=== PATIENT | female | born 2005 | race Caucasian/White ===

== ENCOUNTER 2023-01-21 21:47 | Day surgery (SDC) | payer BC, OTHER ==
[~2023-01-21] VITALS: Ht 162.5 cm; Wt 68.0 kg
--- NOTE | 2023-01-21 21:52 | ED Abdominal Pain ---
General Stated Complaint: SEVERE ADOMINAL PAIN History of Present Illness Date Seen by Provider: Jan 21, 2023 Time Seen by Provider: 21:52 Initial Comments 17-year-old female with no significant PMH, is here with complaints of right lower quadrant and periumbilical pain which began yesterday and has been worsening today. Pain has increased intensity to 7/10. Patient had a [employer] wrap for lunch and was able to tolerate it. Denies fever and chills, vomiting, diarrhea, constipation, chest pain. In the ER pt has intermittent bouts of nausea. Allergies and Home Medications Allergies Coded Allergies: No Known Drug Allergies (Unverified , 01/21/23) Patient Home Medication List Home Medication List Reviewed: Yes Review of Systems Review of Systems Constitutional: no symptoms reported EENTM: No Symptoms Reported Respiratory: No Symptoms Reported Cardiovascular: No Symptoms Reported Gastrointestinal: Abdominal Pain, Nausea Genitourinary: No Symptoms Reported Skin: no symptoms reported Physical Exam Vital Signs Vital Signs - First Documented 01/21/23 21:52 Temp 36.8 Pulse 84 Resp 18 B/P (MAP) 127/105 (112) Pulse Ox 100 O2 Delivery Room Air Capillary Refill : Height/Weight/BMI Height: '" Weight: lbs. oz. kg; BMI Method: General Appearance: WD/WN, moderate distress HEENT: PERRL/EOMI, normal ENT inspection Neck: full range of motion Respiratory: lungs clear, normal breath sounds Cardiovascular: tachycardia Gastrointestinal: normal bowel sounds, soft, no organomegaly, tenderness (Right lower quadrant and periumbilical area) Extremities: normal range of motion Back: normal inspection, no CVA tenderness Neurologic/Psychiatric: alert, normal mood/affect, oriented x 3 Skin: normal color Focused Exam Lactate Level 01/21/23 21:58: Lactic Acid Level 0.83 Lactic Acid Level Laboratory Tests Test 01/21/23 21:58 Lactic Acid Level 0.83 MMOL/L (0.50-2.00) Progress/Results/Core Measures Results/Orders Lab Results Laboratory Tests Test 01/21/23 21:53 01/21/23 21:58 01/21/23 22:04 Range/Units Urine Color YELLOW Urine Clarity CLEAR Urine pH 6.0 5-9 Urine Specific [place] >=1.030 1.016-1.022 Urine Protein NEGATIVE NEGATIVE Urine Glucose (UA) NEGATIVE NEGATIVE Urine Ketones NEGATIVE NEGATIVE Urine Nitrite NEGATIVE NEGATIVE Urine Bilirubin NEGATIVE NEGATIVE Urine Urobilinogen 0.2 < = 1.0 MG/DL Urine Leukocyte Esterase NEGATIVE NEGATIVE Urine RBC (Auto) TRACE-I H NEGATIVE Urine RBC 5-10 H /HPF Urine WBC 10-25 H /HPF Urine Squamous Epithelial Cells 10-25 H /HPF Urine Crystals NONE /LPF Urine Bacteria MODERATE H /HPF Urine Casts NONE /LPF Urine Mucus LARGE H /LPF Urine Culture Indicated YES Urine Test NEGATIVE NEGATIVE Urine Opiates Screen POSITIVE H NEGATIVE Urine Oxycodone Screen NEGATIVE NEGATIVE Urine Methadone Screen NEGATIVE NEGATIVE Urine Propoxyphene Screen NEGATIVE NEGATIVE Urine Barbiturates Screen NEGATIVE NEGATIVE Ur Tricyclic Antidepressants Screen NEGATIVE NEGATIVE Urine Phencyclidine Screen NEGATIVE NEGATIVE Urine Amphetamines Screen NEGATIVE NEGATIVE Urine Methamphetamines Screen NEGATIVE NEGATIVE Urine Benzodiazepines Screen NEGATIVE NEGATIVE Urine Cocaine Screen NEGATIVE NEGATIVE Urine Cannabinoids Screen NEGATIVE NEGATIVE White Blood Count 19.5 H 4.3-11.0 10^3/uL Red Blood Count 4.77 3.80-5.11 10^6/uL Hemoglobin 14.4 11.5-16.0 g/dL Hematocrit 43 35-52 % Mean Corpuscular Volume 89 80-99 fL Mean Corpuscular Hemoglobin 30 25-34 pg Mean Corpuscular Hemoglobin Concent 34 32-36 g/dL Red Cell Distribution Width 11.9 10.0-14.5 % Platelet Count 293 130-400 10^3/uL Mean Platelet Volume 9.9 9.0-12.2 fL Immature Granulocyte % (Auto) 0 % Neutrophils (%) (Auto) 58 42-75 % Lymphocytes (%) (Auto) 27 12-44 % Monocytes (%) (Auto) 8 0-12 % Eosinophils (%) (Auto) 6 0-10 % Basophils (%) (Auto) 1 0-10 % Neutrophils # (Auto) 11.2 H 1.8-7.8 10^3/uL Lymphocytes # (Auto) 5.3 H 1.0-4.0 10^3/uL Monocytes # (Auto) 1.6 H 0.0-1.0 10^3/uL Eosinophils # (Auto) 1.2 H 0.0-0.3 10^3/uL Basophils # (Auto) 0.1 0.0-0.1 10^3/uL Immature Granulocyte # (Auto) 0.1 0.0-0.1 10^3/uL Neutrophils % (Manual) 63 % Lymphocytes % (Manual) 32 % Monocytes % (Manual) 2 % Eosinophils % (Manual) 3 % Sodium Level 139 135-145 MMOL/L Potassium Level 3.5 L 3.6-5.0 MMOL/L Chloride Level 100 98-107 MMOL/L Carbon Dioxide Level 26 21-32 MMOL/L Anion Gap 13 5-14 MMOL/L Blood Urea Nitrogen 11 7-18 MG/DL Creatinine 0.78 0.60-1.30 MG/DL Estimat Glomerular Filtration Rate 112 BUN/Creatinine Ratio 14 Glucose Level 103 70-105 MG/DL Lactic Acid Level 0.83 0.50-2.00 MMOL/L Calcium Level 10.2 H 8.5-10.1 MG/DL Corrected Calcium 8.5-10.1 MG/DL Magnesium Level 2.2 1.6-2.4 MG/DL Total Bilirubin 0.3 0.1-1.0 MG/DL Aspartate Amino Transf (AST/SGOT) 17 5-34 U/L Alanine Aminotransferase (ALT/SGPT) 11 0-55 U/L Alkaline Phosphatase 71 40-136 U/L Total Protein 8.3 H 6.4-8.2 GM/DL Albumin 5.3 H 3.2-4.5 GM/DL Lipase 36 8-78 U/L Serum Alcohol < 10 <10 MG/DL Influenza Type A (RT-PCR) Not Detected Not Detecte Influenza Type B (RT-PCR) Not Detected Not Detecte SARS-CoV-2 RNA (RT-PCR) Not Detected Not Detecte My Orders Orders - MICK OLEA MD Alcohol (01/21/23 21:52) Cbc And Automated Diff (01/21/23 21:52) Comprehensive Metabolic Panel (01/21/23 21:52) Drug Screen Stat (Urine) (01/21/23 21:52) Hcg,Qualitative Urine (01/21/23 21:52) Lactic Acid Analyzer (01/21/23 21:52) Lipase (01/21/23 21:52) Magnesium (01/21/23 21:52) Ua Culture If Indicated (01/21/23 21:52) Influenza A And B By Pcr (01/21/23 21:52) Covid 19 Inhouse Test (01/21/23 21:52) Ct Abdomen/Pelvis W (01/21/23 21:59) Ketorolac Injection (Ketorolac Injection (01/21/23 22:00) Blood Culture (01/21/23 22:00) Ondansetron Injection (Ondansetron Inj (01/21/23 22:15) Iohexol Injection (Omnipaque 350 Mg/Ml 1 (01/21/23 22:15) Received Contrast (Hold Metformin- Contr (01/21/23 22:15) Ns (Ivpb) 100 Ml (Sodium Chloride 0.9% 1 (01/21/23 22:15) Ed Iv/Invasive Line Start (01/21/23 22:05) Ns Iv 1000 Ml (Ns Iv 1000 Ml) (01/21/23 22:05) Ondansetron Injection (Ondansetron Inj (01/21/23 22:05) Urine Bedside (01/21/23 22:23) Manual Differential (01/21/23 21:58) Urine Culture (01/21/23 21:53) Piperacillin/Tazobactam (Piperacillin/Ta (01/21/23 23:00) Hydromorphone Injection (Hydromorphone (01/21/23 23:00) Medications Given in ED Current Medications Medications Dose Ordered Sig/Danette Route Start Time Stop Time Status Last Admin Dose Admin Iohexol 100 ml ONCE ONCE IV 01/21/23 22:15 01/21/23 22:16 DC 01/21/23 22:20 80 ML Ketorolac Tromethamine 15 mg ONCE ONCE IVP 01/21/23 22:00 01/21/23 22:01 DC 01/21/23 22:04 15 MG Ondansetron HCl 4 mg ONCE ONCE IVP 01/21/23 22:15 01/21/23 22:16 DC 01/21/23 22:07 4 MG Sodium Chloride 100 ml ONCE ONCE IV 01/21/23 22:15 01/21/23 22:16 DC 01/21/23 22:20 100 ML Vital Signs/I&O 01/21/23 21:52 Temp 36.8 Pulse 84 Resp 18 B/P (MAP) 127/105 (112) Pulse Ox 100 O2 Delivery Room Air Progress Progress Note : Progress Note 1. ACUTE APPENDICITIS: - CT ABD: acute appendicitis - CBC: WBC is 19.5 with a left shift - CMP: unremarkable - Lipase: negative - UA/ UDS:positive for opiates - Blood cultures sent - NS IVF 250/hr - Toradol iv / Zofran 4mg iv STAT - Zosyn iv STAT/Dilaudid 0.5mg iv - Discussed with Dr. Diaz , surgeon, and accepted to [facility]. Pt to go by private vehicle since [facility] will not transport pts after midnight. Diagnostic Imaging Diagonstic Imaging: CT Plain Films/CT/US/NM/MRI: abdomen Departure Impression Primary Impression: Acute appendicitis Disposition: 30 STILL A PATIENT Condition: Stable Admissions Decision to Admit Reason: Admit from ER (General) Decision to Admit/Date: Jan 21, 2023 Time/Decision to Admit Time: 22:40 Departure-Patient Inst. Referrals: NO,LOCAL PHYSICIAN (PCP/Family) Primary Care Physician MICK OLEA MD Jan 21, 2023 21:52
[2023-01-21] MEDS ORDERED: KETOROLAC INJ 15 MG/ML VIAL IVP ONE (22:00)
[2023-01-21] MEDS ORDERED: NS IV 1000 ML 1,000 ML IV STA (22:05)
[2023-01-21] MEDS ORDERED: ONDANSETRON INJECTION 4 MG/2 ML (SDV) ONE (22:05)
[2023-01-21] MEDS ORDERED: NS 100 ML (IVPB) BAG IV ONE (22:15)
[2023-01-21] MEDS ORDERED: ONDANSETRON INJECTION 4 MG/2 ML (SDV) IVP ONE (22:15)
[2023-01-21] MEDS ORDERED: IOHEXOL 350 MG/ML 100 ML (OMNIPAQUE 350) VIAL IV ONE (22:15)
[2023-01-21] MEDS ORDERED: HOLD METFORMIN - RECEIVED CONTRAST 20 ML VIAL IV SCH (22:15)
[2023-01-21 22:18] LABS: BASOPHILS # (AUTO) 0.1 10^3/uL (0.0-0.1); BASOPHILS % (AUTO) 1 % (0-10); EOSINOPHILS # (AUTO) 1.2 10^3/uL (0.0-0.3); EOSINOPHILS % (AUTO) 6 % (0-10); HEMATOCRIT 43 % (35-52); HEMOGLOBIN 14.4 g/dL (11.5-16.0); LYMPHOCYTES # (AUTO) 5.3 10^3/uL (1.0-4.0); LYMPHOCYTES % (AUTO) 27 % (12-44); MEAN CORPUSCULAR HEMOGLOBIN 30 pg (25-34); MEAN CORPUSCULAR HGB CONC 34 g/dL (32-36); MEAN CORPUSCULAR VOLUME 89 fL (80-99); MEAN PLATELET VOLUME 9.9 fL (9.0-12.2); MONOCYTES # (AUTO) 1.6 10^3/uL (0.0-1.0); MONOCYTES % (AUTO) 8 % (0-12); NEUTROPHILS # (AUTO) 11.2 10^3/uL (1.8-7.8); NEUTROPHILS % (AUTO) 58 % (42-75); PLATELET COUNT 293 10^3/uL (130-400); WHITE BLOOD COUNT 19.5 10^3/uL (4.3-11.0)
[2023-01-21 22:19] LABS: BILIRUBIN,URINE NEGATIVE (NEGATIVE); CLARITY,URINE CLEAR; COLOR,URINE YELLOW; GLUCOSE, URINE (UA) NEGATIVE (NEGATIVE); KETONES,URINE NEGATIVE (NEGATIVE); LEUKOCYTE ESTERASE ,URINE NEGATIVE (NEGATIVE); NITRITE,URINE NEGATIVE (NEGATIVE); PROTEIN,URINE NEGATIVE (NEGATIVE)
[2023-01-21 22:26] LABS: HCG,QUALITATIVE URINE NEGATIVE (NEGATIVE)
[2023-01-21 22:27] LABS: BACTERIA,URINE MODERATE /HPF
[2023-01-21 22:31] LABS: AMPHETAMINE SCREEN, URINE NEGATIVE (NEGATIVE); BARBITURATE SCREEN URINE NEGATIVE (NEGATIVE); CANNABINOID SCREEN, URINE NEGATIVE (NEGATIVE); COCAINE SCREEN URINE NEGATIVE (NEGATIVE); METHADONE STAT NEGATIVE (NEGATIVE); OPIATE SCREEN URINE POSITIVE (NEGATIVE); OXYCODONE STAT NEGATIVE (NEGATIVE); PROPOXYPHENE STAT NEGATIVE (NEGATIVE); TRICYCLIC ANTIDEPRESSANTS SCRE NEGATIVE (NEGATIVE)
[2023-01-21 22:34] LABS: BILIRUBIN,TOTAL 0.3 MG/DL (0.1-1.0); CALCIUM 10.2 MG/DL (8.5-10.1); CHLORIDE 100 MMOL/L (98-107); MAGNESIUM 2.2 MG/DL (1.6-2.4); POTASSIUM 3.5 MMOL/L (3.6-5.0); SODIUM 139 MMOL/L (135-145)
[2023-01-21 22:36] LABS: CARBON DIOXIDE 26 MMOL/L (21-32); LIPASE 36 U/L (8-78)
--- NOTE | 2023-01-21 22:38 | Diagnostic Imaging Report ---
PROCEDURE: CT abdomen and pelvis with contrast. TECHNIQUE: Multiple contiguous axial images were obtained through the abdomen and pelvis after administration of intravenous contrast. Auto Exposure Controls were utilized during the CT exam to meet ALARA standards for radiation dose reduction. All CT scans use one or more of the following dose optimizing techniques: automated exposure control, MA and/or KvP adjustment based on patient size and exam type or iterative reconstruction. INDICATION: Right lower quadrant pain The appendix appears distended with periappendiceal induration of the fat. Lung bases are clear. Liver appears normal. Gallbladder is normal. Spleen is not enlarged. Pancreas is normal. Kidneys and adrenals appear normal. Uterus and adnexa are unremarkable. There is no intraperitoneal free air or free fluid. IMPRESSION: Acute appendicitis Dictated by: Dictated on workstation # [id number]
[2023-01-21 22:40] LABS: ALANINE AMINOTRANSFERASE 11 U/L (0-55); ALKALINE PHOSPHATASE 71 U/L (40-136); BUN/CREATININE RATIO 14; CREATININE SERUM 0.78 MG/DL (0.60-1.30); GFR ESTIMATED 112; GLUCOSE 103 MG/DL (70-105); TOTAL PROTEIN 8.3 GM/DL (6.4-8.2)
[2023-01-21 22:41] LABS: ALBUMIN 5.3 GM/DL (3.2-4.5)
[2023-01-21 22:46] LABS: EOSINOPHILS % (MANUAL) 3 %; LYMPHOCYTES % (MANUAL) 32 %; MONOCYTES % (MANUAL) 2 %; NEUTROPHILS % (MANUAL) 63 %
[2023-01-21] MEDS ORDERED: HYDROmorphone INJECTION 2 MG/ML VIAL IV ONE (23:00)
[2023-01-21] MEDS ORDERED: PIPERACILLIN/Tazobactam 4.5 GM in NS (IVPB) 100 ML 100 ML IV ONE (23:00)
[2023-01-21] MEDS ORDERED: NS (IVPB) 100 ML 100 ML ONE (23:04)
[2023-01-21] MEDS ORDERED: HYDROmorphone INJECTION 2 MG/ML VIAL ONE (23:04)
[2023-01-22] VITALS (14 sets, daily range): BP systolic 98–130; BP diastolic 50–71
[2023-01-22] MEDS: LACTATED RINGERS 1,000 ML 1,000 ML IV SCH ×3 (01:10→15:38)
[2023-01-22] MEDS: morphine INJ 4 MG/ML 1 ML (VIAL/SYRINGE) IVP PRN ×6 (01:10→16:46)
[2023-01-22] MEDS: ONDANSETRON INJECTION 4 MG/2 ML (SDV) IVP PRN ×4 (01:10→15:32)
--- NOTE | 2023-01-22 08:32 | Consultation - Surgery ---
CLOVER NUÑEZ 01/22/23 0832: History of Present Illness History of Present Illness Patient Consulted On(terri/time) 01/22/23 0700 Date Seen by Provider: Jan 22, 2023 Time Seen by Provider: 08:00 Reason for Visit: Abdominal Pain History of Present Illness Edita Chamberlain is a 17 year old female with a past medical history of stomach ulcers who presented with worsening abdominal pain. Pain started 2 days ago and started out as she described constipation like pain with pain in her back and abdomen. She was able to tolerate the pain but by the next day, the pain increased in severity and she devolved nausea and vomiting. The pain yesterday increased an localized to the middle abdomen on her right side and by the afternoon migrated down to her RLQ. She has defuse abdominal pain but it is most sever at McBurney's point. The last time she was able to eat was just before 10 AM yesterday and it was only a few bites from a sandwich. She has never had similar pain like this before but has had some pain in her stomach that was fount out to be stomach ulcers via EGD done at a hospital in [place]. Pain is currently a 6/10 but becomes a 10/10 with any movement and it feels like a sharp stabbing pain. The only thing that helps her pain is remaining completely still. She also has had a ache headache since being admitted due to severe pain. She did mention that everyone on her paternal father's side has had their appendix removed due to appendicitis. Allergies and Home Medications Allergies Coded Allergies: No Known Drug Allergies (Unverified , 01/21/23) Past Nkkllzr-Ujewlf-Mgchol Hx Patient Social History Smoking Status: Current Everyday Smoker Former Smoker, Quit: May 18, 2021 Type Used: Cigarettes (used to smoke 1 pack per week but quit in may of 2021), Electronic/Vapor (Daily ) Alcohol Use?: No Immunizations Up To Date Date of Influenza Vaccine: Jan 01, 2023 Surgeries History of Surgeries: No Respiratory History of Respiratory Disorde: No Cardiovascular History of Cardiac Disorders: No Neurological History of Neurological Disord: No Genitourinary History of Genitourinary Disor: No Gastrointestinal History of Gastrointestinal Di: Yes Gastrointestinal Disorders: Ulcer (Stomach ulcers) Musculoskeletal History of Musculoskeletal Dis: No Endocrine History of Endocrine Disorders: No Cancer History of Cancer: No Family Medical History Significant Family History: GI Disease (mother had Stomach ulcers), Other Conditions/Hx (maternal grandmother and father have issues with their thyroid) Review of Systems-General Constitutional: No chills, No fever EENTM: No blurred vision, No double vision, No vision loss, No throat pain Respiratory: No cough; short of breath (pain with deep inspiration ) Gastrointestinal: abdominal pain (RLQ); No constipation, No diarrhea, No dysphagia, No heartburn Genitourinary: No dysuria Psychiatric/Neurological: Headache Physical Exam-General Problems Physical Exam Vital Signs Vital Signs - First Documented 01/21/23 21:52 Temp 36.8 Pulse 84 Resp 18 B/P (MAP) 127/105 (112) Pulse Ox 100 O2 Delivery Room Air Capillary Refill : Less Than 3 Seconds General Appearance: WD/WN, moderate distress HEENT: PERRL/EOMI; No pharyngeal erythema Neck: non-tender, supple Respiratory: lungs clear, normal breath sounds, no respiratory distress Cardiovascular: regular rate, rhythm, no edema, no murmur Peripheral Pulses: 3+ Dorsalis Pedis (R), 3+ Left Dors-Pedis (L), 3+ Radial Pulses (R), 3+ Radial Pulses (L) Gastrointestinal: guarding, tenderness (diffuse abominal tenderness but most severe in RLQ) Extremities: no pedal edema Neurologic/Psychiatric: alert, oriented x 3 Skin: normal color, warm/dry Lymphatic: no adenopathy (cervical or supraclavicular ) Data Review Labs Laboratory Tests 01/21/23 21:53: Urine Color YELLOW, Urine Clarity CLEAR, Urine pH 6.0, Urine Specific [place] >=1.030, Urine Protein NEGATIVE, Urine Glucose (UA) NEGATIVE, Urine Ketones NEGATIVE, Urine Nitrite NEGATIVE, Urine Bilirubin NEGATIVE, Urine Urobilinogen 0.2, Urine Leukocyte Esterase NEGATIVE, Urine RBC (Auto) TRACE-IH, Urine RBC 5- 10H, Urine WBC 10-25H, Urine Squamous Epithelial Cells 10-25H, Urine Crystals NONE, Urine Bacteria MODERATEH, Urine Casts NONE, Urine Mucus LARGEH, Urine Culture Indicated YES, Urine Test NEGATIVE, Urine Opiates Screen POSITIVEH, Urine Oxycodone Screen NEGATIVE, Urine Methadone Screen NEGATIVE, Urine Propoxyphene Screen NEGATIVE, Urine Barbiturates Screen NEGATIVE, Ur Tricyclic Antidepressants Screen NEGATIVE, Urine Phencyclidine Screen NEGATIVE, Urine Amphetamines Screen NEGATIVE, Urine Methamphetamines Screen NEGATIVE, Urine Benzodiazepines Screen NEGATIVE, Urine Cocaine Screen NEGATIVE, Urine Cannabinoids Screen NEGATIVE 01/21/23 21:58: White Blood Count 19.5H, Red Blood Count 4.77, Hemoglobin 14.4, Hematocrit 43, Mean Corpuscular Volume 89, Mean Corpuscular Hemoglobin 30, Mean Corpuscular Hemoglobin Concent 34, Red Cell Distribution Width 11.9, Platelet Count 293, Mean Platelet Volume 9.9, Immature Granulocyte % (Auto) 0, Neutrophils (%) (Auto) 58, Lymphocytes (%) (Auto) 27, Monocytes (%) (Auto) 8, Eosinophils (%) (Auto) 6, Basophils (%) (Auto) 1, Neutrophils # (Auto) 11.2H, Lymphocytes # (Auto) 5.3H, Monocytes # (Auto) 1.6H, Eosinophils # (Auto) 1.2H, Basophils # (Auto) 0.1, Immature Granulocyte # (Auto) 0.1, Neutrophils % (Manual) 63, Lymphocytes % (Manual) 32, Monocytes % (Manual) 2, Eosinophils % (Manual) 3, Sodium Level 139, Potassium Level 3.5L, Chloride Level 100, Carbon Dioxide Level 26, Anion Gap 13, Blood Urea Nitrogen 11, Creatinine 0.78, Estimat Glomerular Filtration Rate 112, BUN/Creatinine Ratio 14, Glucose Level 103, Lactic Acid Level 0.83, Calcium Level 10.2H, Corrected Calcium , Magnesium Level 2.2, Total Bilirubin 0.3, Aspartate Amino Transf (AST/SGOT) 17, Alanine Aminotransferase (ALT/SGPT) 11, Alkaline Phosphatase 71, Total Protein 8.3H, Albumin 5.3H, Lipase 36, Serum Alcohol < 10 01/21/23 22:04: Influenza Type A (RT-PCR) Not Detected, Influenza Type B (RT-PCR) Not Detected, SARS-CoV-2 RNA (RT-PCR) Not Detected Radiology CT abdomen/pelvis 01/21 The appendix appears distended with periappendiceal induration of the fat. Lung bases are clear. Liver appears normal. Gallbladder is normal. Spleen is not enlarged. Pancreas is normal. Kidneys and adrenals appear normal. Uterus and adnexa are unremarkable. There is no intraperitoneal free air or free fluid. IMPRESSION: Acute appendicitis Assessment/Plan Assessment/Plan Assessment/Plan Acute Appendicitis Abdominal pain UTI Plan: Laparascopic appendectomy today Make patient NPO Start Pain medications, IV fluids and IV Antibiotics Give antiemetic medications as needed for nausea BETZY DIAZ DO 01/22/23 1315: History of Present Illness History of Present Illness Time Seen by Provider: 12:25 History of Present Illness Surgery asked to consult regarding Appendicitis. HPI per ED: 17-year-old female with no significant PMH, is here with complaints of right lower quadrant and periumbilical pain which began yesterday and has been worsening today. Pain has increased intensity to 7/10. Patient had a [employer] wrap for lunch and was able to tolerate it. Denies fever and chills, vomiting, diarrhea, constipation, chest pain. In the ER pt has intermittent bouts of nausea. When I saw pt this morning she appeared to be in minimal pain and stated it was about the same as yesterday. Allergies and Home Medications Allergies Coded Allergies: No Known Drug Allergies (Unverified , 01/21/23) Patient Home Medication List Home Medication List Reviewed: Yes Past Tkaxsco-Riwdqj-Kjsbxo Hx Patient Social History Smoking Status: Former Smoker Alcohol Use?: No Surgeries History of Surgeries: No Respiratory History of Respiratory Disorde: No Cardiovascular History of Cardiac Disorders: No Neurological History of Neurological Disord: No Reproductive System : No Genitourinary History of Genitourinary Disor: No Gastrointestinal History of Gastrointestinal Di: Yes Gastrointestinal Disorders: Ulcer (Stomach ulcers) Musculoskeletal History of Musculoskeletal Dis: No HEENT History of HEENT Disorders: No Loss of Vision: Denies Hearing Impairment: Denies Cancer History of Cancer: No Psychosocial History of Psychiatric Problem: No Family Medical History Significant Family History: GI Disease (mother had Stomach ulcers), Other Conditions/Hx (maternal grandmother and father have issues with their thyroid) Review of Systems-General Constitutional: No chills, No fever EENTM: No blurred vision, No double vision, No vision loss, No throat pain Respiratory: No cough; short of breath (pain with deep inspiration ) Cardiovascular: No chest pain, No palpitations Gastrointestinal: abdominal pain (RLQ); No constipation, No diarrhea, No dysphagia, No heartburn; nausea, vomiting Genitourinary: No dysuria, No hematuria Musculoskeletal: No joint pain, No joint swelling, No muscle stiffness Skin: No change in color, No change in hair/nails Psychiatric/Neurological: Denies Anxiety, Denies Depressed; Headache; Denies Tremors Physical Exam-General Problems Physical Exam General Appearance: WD/WN, moderate distress Eyes: Bilateral Eye PERRL, Bilateral Eye EOMI HEENT: pharynx normal; No scleral icterus (R), No scleral icterus (L), No pharyngeal erythema Neck: non-tender, supple Respiratory: lungs clear, normal breath sounds, no respiratory distress, no accessory muscle use Cardiovascular: regular rate, rhythm, no murmur Gastrointestinal: soft, guarding, tenderness (diffuse abominal tenderness but most severe in RLQ), hernia (small umbilical) Rectal: deferred Back: no CVA tenderness, no vertebral tenderness Extremities: no pedal edema, no calf tenderness Neurologic/Psychiatric: alert, oriented x 3 Skin: normal color, warm/dry Lymphatic: no adenopathy (cervical or supraclavicular, axillary or inguinal) Assessment/Plan Assessment/Plan Assessment/Plan Acute Appendicitis Abdominal pain UTI Plan: Laparascopic appendectomy today, Pt was admitted made NPO, Pain medications, IV fluids and IV Antibiotics, antiemetic medications as needed for nausea I spoke with pt and her mother going over the procedure, risks and complications not limited to pain, bleeding, infection, scar, damage to bowel and need for further procedure. All questions answered to their satisfaction. Will get consent and go to the OR. Supervisory-Addendum Brief Verification & Attestation Participated in pt care: history, MDM, physical Personally performed: exam, history, MDM, supervision of care Care discussed with: Medical Student Procedures: n/a Verification and Attestation of Medical Student E/M Service A medical student performed and documented this service. I then reviewed and verified all information documented by the medical student and made mod ifications to such information, when appropriate. I personally performed a physical exam, medical decision making and then discussed any differences between the notes and made revisions as necessary to create one note. Betzy Diaz , 01/22/23 , 13:16 CLOVER NUÑEZ Jan 22, 2023 08:32 BETZY DIAZ DO Jan 22, 2023 13:15
[2023-01-22] MEDS ORDERED: LIDOCAINE 2% w/EPI 1:100,000 20 ML VIAL ONE (12:34)
[2023-01-22] MEDS ORDERED: LIDOCAINE PF 2% 5 ML VIAL ONE (12:45)
[2023-01-22] MEDS ORDERED: LACTATED RINGERS 1,000 ML 1,000 ML IV PRN (12:45)
[2023-01-22] MEDS ORDERED: ROCURONIUM 50 MG/5 ML VIAL IV ONE (12:45)
[2023-01-22] MEDS ORDERED: MIDAZOLAM INJ 2 MG/2 ML VIAL ONE (12:45)
[2023-01-22] MEDS ORDERED: fentaNYL INJECTION 100 MCG/2 ML VIAL ONE (12:45)
[2023-01-22] MEDS ORDERED: proPOfol INJECTION 200 MG/20 ML VIAL IV ONE (12:45)
[2023-01-22] MEDS ORDERED: ceFAZolin INJECTION 1,000 MG ONE ×2 (13:19→13:41)
[2023-01-22] MEDS ORDERED: LIDOCAINE 2% w/EPI 1:100,000 20 ML VIAL INJ ONE (13:19)
[2023-01-22] MEDS ORDERED: ceFAZolin 2,000 MG VIAL IV ONE (13:20)
[2023-01-22] MEDS ORDERED: NEOSTIGMINE 1 MG/1ML 10 ML VIAL ONE (13:43)
[2023-01-22] MEDS ORDERED: SUCCINYLCHOLINE INJ 20 MG/1 ML 10 ML VIAL ONE (13:44)
[2023-01-22] MEDS ORDERED: SEVOFLURANE (ULTANE) 15 ML INHAL SOLN ONE (13:44)
[2023-01-22] MEDS ORDERED: GLYCOPYRROLATE INJ 0.2 MG/ML 2 ML VIAL ONE (13:45)
--- NOTE | 2023-01-22 14:08 | Anesthesia-General Post-Op ---
General Patient Condition Mental Status/LOC: Same as Preop Cardiovascular: Satisfactory Nausea/Vomiting: Absent Respiratory: Satisfactory Pain: Controlled Complications: Absent Post Op Complications Complications None Follow Up Care/Instructions Patient Instructions None needed. Anesthesia/Patient Condition Patient Condition Patient is doing well, no complaints, stable vital signs, no apparent adverse anesthesia problems. No complications reported per nursing. JAMAL TROY CRNA Jan 22, 2023 14:08
[2023-01-22] MEDS ORDERED: ONDANSETRON INJECTION 4 MG/2 ML (SDV) IVP PRN (14:15)
[2023-01-22] MEDS ORDERED: fentaNYL INJECTION 100 MCG/2 ML VIAL IVP ONE (14:15)
--- NOTE | 2023-01-22 14:22 | Progress Note-Post Operative ---
Post-Operative Progess Note Surgeon (s)/Culled Fruit Packer (s) Surgeon BETZY HENDERSON DO Culled Fruit Packer: CHANI Rodriguez Pre-Operative Diagnosis Acute Appendicitis Post-Operative Diagnosis same Procedure & Operative Findings Date of Procedure 01/22/23 Procedure Performed/Findings PROCEDURE: Laparoscopic appendectomy. COMPLICATIONS: None. INDICATIONS: The patient is a 17 year old female who has been having right lower quadrant abdominal pain. Patient's exam consistent with appendicitis. I discussed risk and benefits of laparoscopic appendectomy and all indicated procedures with the possibility being a normal appendix. The patient understands the risks and benefits and wishes to proceed. Consent was signed on the chart. DESCRIPTION OF PROCEDURE: The patient was taken to the operating suite, prepped and draped in a sterile fashion. Timeout was performed. Local anesthetic was infiltrated just above the umbilicus and 11-blade scalpel was used to make a skin incision. Cautery was used to dissect down to the fascia and scored. Kochers were used to grasp and elevate it and the abdomen was then entered. A 0 Vicryl was placed in a [id number] fashion for closure at the end of the case. The balloon trocar was inserted into the abdomen and pneumoperitoneum was achieved. Under direct visualization of the laparoscope, a 5 mm trocar was placed in the suprapubic region and a 5 mm trocar was placed in the left lower quadrant. Appendix was located, in the right lower quadrant surrounded by small bowel and inflammation. There was some fibrinous material, but no purulence and did not look like it had perforated. Started dividing the mesoappendix with the Liguarue going through appendiceal artery to the base of t he appendix. Once at the base an Endo-GLORIA 2.5 stapler was then fired and it was then placed in an Endobag and removed through the 12 mm trocar site. The abdomen was then irrigated and suctioned. No other pathology noted. The abdomen was then desufflated and the trocars were removed. The 0 Vicryl placed at the beginning of the case was then tied closing the 12 mm fascial defect. The skin was then closed using 4-0 Monocryl in a subcuticular fashion. The abdomen was then washed and dried and Skin Affix was placed over the incisions. The patient tolerated the procedure well without any complications and was taken to the recovery room in stable condition. Anesthesia Type GET Estimated Blood Loss Estimated blood loss (mL): scant Specimens/Packing Specimens Removed appendix BETZY HENDERSON DO Jan 22, 2023 14:22
[2023-01-22] MEDS ORDERED: ACHD5005 PO (14:23)
--- NOTE | 2023-01-22 14:25 | Discharge Inst-Surgical ---
Discharge Inst-Surgical Depart Medication/Instructions New, Converted or Re-Newed RX: Transmitted to Pharmacy Patient Instructions Follow up Appt: Make appointment for 1 week. [phone] Instructions: No lifting greater than 20 pounds. No strenuous activity. May shower in 24 hours, no tub bath or soaking. Use incentive spirometer at home as directed. No Smoking Skin/Wound Care: May remove bandages in am. You need to leave the Dermabond on incision it will fall off on it's own. Symptoms to Report: Appetite Changes, Extremity Discoloration, Numbness/Tingling, Swelling Increased, Bleeding Excessive, Eyesight Changes, Pain Increased, Urine Color Change, Constipation(Persistent), Fever over 101 degree F, Pain/Pressure in chest, Urinating Difficulty, Cough Up/Vomit Blood, Heart Beat Irreg/Pounding, Pain/Pressure in jaw, Cramps in feet or legs, Lightheadedness, Pain/Pressure in shoulder, Diarrhea(Persistent), Memory Changes Suddenly, Questions/Concerns, Weight gain consecutive days, Dizziness/Fainting, Nausea/Vomiting, Shortness of Breath, Weight gain over 2 pounds If questions or concerns contact your physician Or seek help at emergency department. Activity Activity as Tolerated: Yes Activity Instructions: Avoid Stress to Incision Driving Instructions: No Driving/Refer to Dr. Bradley Discharge Diet: No Restrictions Diet After 24 Hours: Clear Liquid if Nauseous If Any Problems/Questions/Issu: Contact Your Physician, Go to Emergency Room Skin/Wound Care Infection Signs and Symptoms: Increased Redness, Foul Odor of Wound, Increased Drainage, Skin Itchy or Has a Rash, Increased Swelling, Temperature Above 101 F Wound Care Comment: heating pad to shoulder or neck tonight for pain Bathing Instructions: Shower Stitches/[place]/Dermabond Dis: [place] BETZY HENDERSON DO Jan 22, 2023 14:25
== END 2023-01-22 18:57 | disposition home or self-care (01) ==
LOC: ER FS 21:50 → SDC 21:51 → 4TH 21:51 → UNDOADMOB 01-22 00:16 → SDC 01-22 18:57 → UNDODISOB 01-22 18:57
PROVIDERS: ATTEND Surgery
DX: K35.80 Unspecified acute appendicitis (principal); N39.0 Urinary tract infection, site not specified; F17.290 Nicotine dependence, other tobacco product, uncomplicated; Z28.310 Unvaccinated for COVID-19
CPT/HCPCS: 36415; 74177; 80053; 80306; 80320; 81000; 83605; 83690; 83735; 84703; 85007; 85027; 87040; 87081; 87088; 87636; 96361; 96374; 96375; 96376; Q9967